=== PATIENT | female | born 1955 | race Caucasian/White ===

== ENCOUNTER → 2019-01-26 | Outpatient (CLI) | payer MEDICARE, OTHER ==
--- NOTE | 2019-01-26 13:02 | Diagnostic Imaging Report ---
INDICATION: Cough and congestion with shortness of breath. TIME OF EXAM: 12:06 PM No prior studies available for comparison. FINDINGS: Changes of median sternotomy are noted. Heart is mildly enlarged. Lungs appear clear. No infiltrates are seen. No effusion or pneumothorax is identified. IMPRESSION: Status post CABG. No acute cardiopulmonary process is detected. Dictated by: Dictated on workstation # [id number]
== END ==
LOC: RAD FS 11:47
PROVIDERS: ATTEND Nurse Practitioner Family
DX: J98.01 Acute bronchospasm (principal); Z95.1 Presence of aortocoronary bypass graft
CPT/HCPCS: 71046

== ENCOUNTER → 2022-01-08 | Outpatient (CLI) | payer MEDICARE, OTHER ==
--- NOTE | 2022-01-08 17:08 | Diagnostic Imaging Report ---
INDICATION: Left knee pain AP, oblique and lateral views of left knee are obtained. There is mild narrowing of the medial knee joint compartment however no acute fracture or malalignment is identified. There is no lytic or sclerotic lesion and no significant joint effusion is appreciated. IMPRESSION: Mild degenerative findings in the medial compartment of the left knee joint without acute osseous abnormality identified. Dictated by: Dictated on workstation # [id number]
== END ==
LOC: RAD FS 16:12
PROVIDERS: ATTEND Nurse Practitioner Family
DX: M17.12 Unilateral primary osteoarthritis, left knee (principal)
CPT/HCPCS: 73562